=== PATIENT | female | born 1945 | race Two or more races ===

== ENCOUNTER 2022-05-17 23:25 | Inpatient (IN) | payer OTHER ==
[~2022-05-17] VITALS: Ht 152.4 cm; Wt 816.5 kg
[2022-05-17] MEDS ORDERED: BUSPIRONE HCL5 MG PO (23:33)
--- NOTE | 2022-05-17 23:33 | NUR ---
SE RECIBE FEMINA ALERTA Y ORIENTADA X3 QUIEN LLEGA EN AMBULANCIA EN COMPANIA DE PARAMEDICOS QUIENES REFIEREN QUE PTE AL BAJARSE DEL CRUCERO COMENZO A PRESENTAR DIFICULTAD RESPIRATORIA. PTE CON HX DE ASMA. PARAMEDICOS REFIEREN LE ADMINISTRARON DOSIS DE TERAPIA DE ALBUTEROL PREVIO A LLEGAR A DARRION. SE MONITOREAN S/V Y SE UBICA PENDIENTE A EVALUACION MEDICA.
--- NOTE | 2022-05-17 23:54 | NUR ---
FEMINA ALERTA Y ORIENTADA X3 EVALUADA POR EL DR. BROOKS QUIEN ORDENA TRATAMIENTO MEDICO. SE EDUCA A PTE SOBRE PROCEDIMIENTOS Y REFIERE ENTENDER. RN. RODRIGUEZ COLECTA MUESTRAS DE LABORATORIO BAJO MEDIDAS ASEPTICAS. SE LE ADMINISTRA MEDICAMENTO CHELY ORDEN MEDICA. PTE CANALIZADA EN BRAZO LEOLA CON #20 DE AMBULANCIA. SE INTENTA CONTACTAR A TERAPISTA DE TURNO PARA NOTIFICAR ABGS Y TERAPIAS JIE NO RESPONDEN. SE MANTIENE PTE BAJO OBSERVACION POR CAMBIOS SIGNIFICATIVOS.
--- NOTE | 2022-05-18 04:07 | NUR ---
PTE ALERTA Y ORIENTADA X3 EN POSICION DEGROOT CON CANULA NASAL A 3L. SE LE INSERTA FORRESTER DE MANERA ESTERIL SONDA #20 SILICON . SE OBSERVA 200 ML DE ORINA COLOR AMARILLO TURBIO. SE EDUCA A PTE SOBRE TRATAMIENTO MEDICO.
--- NOTE | 2022-05-18 06:46 | NUR ---
SE TRANSFIERE FEMINA ALERTA Y ORIENTADA X3 A UNIDAD DE CHEST PAIN POR ORDEN MEDICA. PTE CONECTADA A MONITOR CCARDIACO Y OXIMETRIA DE PULSO. CANULA NASAL A 3 L/MIN. CANALIZADA X2 EN BRAZO LEOLA #20 AMBOS PATENTES LIBRES DE EDEMA, ERITEMA Y SIGNOS DE INFECCION. TRIDIL @ 1 ML/HR. PTE CON FORRESTER A GRAVEDAD EN EL CUAL SE OBSERVA ORINA AMARILLA TURBIA SIN SEDIMENTACION NI HEMATURIA. SE RAMON A PTE EN POSICION DEGROOT CON ABHINAV POSICION MAS BAJA Y BARANDAS ELEVADAS POR SEGURIDAD.
--- NOTE | 2022-05-18 07:40 | NUR ---
SE RECIBE PACIENTE EN CAMA #18. SE OFRECE FARSHAD PARA EVALUAR CONDICION. PACIENTE ALERTA Y ORIENTADA. IVF'S PATENTES EN BRAZO IZQ ANGIO #20 BAJANDO TRIDIL A 1ML/HR,Y H/L EN MANO IZQ AMBAS AREAS LIBRES DE EDEMA Y/O ERITEMA. SE MIDEN Y DOCUMENTAN S/V. CANULA NASAL 2 3 LITROS Y FORRESTER PATENTE A GRAVEDAD CON ORINA AMARILLO INTENSO. SE MONITOREA POR CAMBIOS SIGNIFICATIVOS. BARANDAS ELEVADAS POR MENG SEGURIDAD.
[2022-05-18] MEDS ORDERED: METFORMIN HCL850 M1 (16:31)
[2022-05-18] MEDS ORDERED: VENLAFAXINE HC150 MG (16:32)
== END 2022-05-27 16:21 | disposition left against medical advice (07) | DRG 281 ==
LOC: ER 23:25 → SEC-K 05-18 12:24 → MEDJ 05-18 12:24
PROVIDERS: ADMIT Internal Medicine; ATTEND Internal Medicine
PROC: 3E0F7GC Introduction of Other Therapeutic Substance into Respiratory Tract, Via Natural or Artificial Opening (ICD-10-PCS; 2022-05-18)
PROC: 02HV33Z Insertion of Infusion Device into Superior Vena Cava, Percutaneous Approach (ICD-10-PCS; 2022-05-18)
PROC: B246ZZZ Ultrasonography of Right and Left Heart (ICD-10-PCS; principal; 2022-05-19)
PROC: BB24ZZZ Computerized Tomography (CT Scan) of Bilateral Lungs (ICD-10-PCS; 2022-05-20)
DX: I21.4 Non-ST elevation (NSTEMI) myocardial infarction (principal); J45.901 Unspecified asthma with (acute) exacerbation; N39.0 Urinary tract infection, site not specified; I21.A1 Myocardial infarction type 2; I24.9 Acute ischemic heart disease, unspecified; R77.8 Other specified abnormalities of plasma proteins; B96.29 Other Escherichia coli [E. coli] as the cause of diseases classified elsewhere; R09.02 Hypoxemia; E11.65 Type 2 diabetes mellitus with hyperglycemia; Z79.4 Long term (current) use of insulin